=== PATIENT | female | born 1970 | race Caucasian/White ===

== ENCOUNTER 2017-05-23 12:22 | Emergency (ER) | payer OTHER ==
[2017-05-23 12:50] VITALS: BP 159/88
--- NOTE | 2017-05-23 13:17 | ED ---
GI/ HPI - HPI Summary HPI Summary: 46F presents with mass in vaginal canal for a week. She states that she noticed some foul smelling vaginal discharge for a week. She had her period last week. She states she felt something hard in her vaginal canal today. She states she had sex a week ago and it was uncomfortable. She denies any foreign body. She has had an abnormal pap once but had a normal colposcopy and pap after. no family history of ovarian or cervical cancer. - History of Current Complaint Chief Complaint: [facility] Time Seen by Provider: 05/23/17 12:47 Stated Complaint: PERSONAL - Allergy/Home Medications Allergies/Adverse Reactions: Allergies Allergy/AdvReac Type Severity Reaction Status Date / Time HALDOL Allergy See Comment Uncoded 05/23/17 12:47 PMH/Surg Hx/FS Hx/Imm Hx Endocrine/Hematology History: Denies: Hx Diabetes Cardiovascular History: Denies: Hx Hypertension, Hx Pacemaker/ICD History: Denies: Hx Renal Disease Musculoskeletal History: Reports: Hx Back Problems - herniated disc Sensory History: Denies: Hx Hearing Aid Neurological History: Reports: Other Neuro Impairments/Disorders - PAIN CLINIC PATIENT Psychiatric History: Reports: Other Psychiatric Issues/Disorders - schizo- affective disorder Denies: Hx Panic Disorder - Surgical History Surgery Procedure, Year, and Place: MOLE REMOVED FROM LEFT THIGH 2011 Infectious Disease History: No Infectious Disease History: Denies: Hx Clostridium Difficile, Hx Hepatitis, Hx Human Immunodeficiency Virus (HIV), Hx of Known/Suspected MRSA, Hx Shingles, Hx Tuberculosis, Hx Known/ Suspected VRE, Hx Known/Suspected VRSA, History Other Infectious Disease, Traveled Outside the [place] in Last 30 Days - Family History Known Family History: Positive: Other - no cervical or ovarian cancer - Social History Alcohol Use: Occasionally Substance Use Type: Reports: None Smoking Status (MU): Former Smoker Type: Cigarettes Have You Smoked in the Last Year: No Review of Systems Negative: Fever Negative: Chest Pain Negative: Shortness Of Breath Positive: Other - vaginal mass and discharge All Other Systems Reviewed And Are Negative: Yes Physical Exam Triage Information Reviewed: Yes Vital Signs On Initial Exam: Initial Vitals Temp Pulse Resp BP Pulse Ox 98 F 64 16 159/88 100 05/23/17 12:48 05/23/17 12:48 05/23/17 12:48 05/23/17 12:48 05/23/17 12:48 Vital Signs Reviewed: Yes Appearance: Positive: Well-Appearing Skin: Positive: Warm, Dry Head/Face: Positive: Normal Head/Face Inspection Eyes: Positive: Normal, EOMI, RADHA, Conjunctiva Clear ENT: Positive: Normal ENT inspection, Pharynx normal, TMs normal Respiratory/Lung Sounds: Positive: Clear to Auscultation, Breath Sounds Present Cardiovascular: Positive: Normal, RRR Abdomen Description: Positive: Nontender, Soft Bowel Sounds: Positive: Present Pelvic Exam: Positive: external exam normal, bimanual exam normal, other - blue object in vaginal object Musculoskeletal: Positive: Normal Neurological: Positive: Normal Psychiatric: Positive: Normal Diagnostics - Vital Signs Vital Signs Temp Pulse Resp BP Pulse Ox 05/23/17 12:48 98 F 64 16 159/88 100 - Laboratory Lab Statement: Any lab studies that have been ordered have been reviewed, and results considered in the medical decision making process. GIGU Course/Dx - Course Course Of Treatment: 46F presents with mass in vaginal canal for a week. She states that she noticed some foul smelling vaginal discharge for a week. She had her period last week. She states she felt something hard in her vaginal canal today. She states she had sex a week ago and it was uncomfortable. She denies any foreign body. She has had an abnormal pap once but had a normal colposcopy and pap after. no family history of ovarian or cervical cancer. on exam has blue object in vaginal canal on speculum exam. removed object which was vaginal period cup from vagina with foreceps and black water discharge was removed with cup. will place on flagyl and bactrim to prevent PID. got cultures. patient understands and agrees with plan. - Diagnoses Differential Diagnoses - Female: Pelvic Inflammatory Disease, Vaginitis, Other - foreign body Provider Diagnoses: Foreign body in vagina Discharge - Discharge Plan Condition: Good Disposition: HOME Prescriptions: Metronidazole [Flagyl 500 MG TAB] 500 mg PO BID #20 tab Sulfamethox/Trimethoprim SS* [Bactrim SS 400/80 TAB*] 1 tab PO BID #20 tab Patient Education Materials: Vaginal Foreign Body (ED) Referrals: Nii Severino MD [Primary Care Provider] - Additional Instructions: Take flagyl twice a day for 10 days, can not drink alcohol with this medication as will cause vomiting Take bactrim twice a day for 10 days Follow up with obgyn Return to ED if develop any fever, severe abdominal pain, or any new or worsening symptoms
== END 2017-05-23 13:25 | disposition home or self-care (01) ==
LOC: UCEAST 12:22
DX: T19.2XXA Foreign body in vulva and vagina, initial encounter (principal); X58.XXXA Exposure to other specified factors, initial encounter; Y93.9 Activity, unspecified; Y92.9 Unspecified place or not applicable; Z87.891 Personal history of nicotine dependence
CPT/HCPCS: 87070; 87077; 87480; 87491; 87510; 87591; 87661; 99212; G0463